=== PATIENT | male | born 2000 | race Hispanic/Latino ===

== ENCOUNTER 2021-11-28 04:06 | Emergency (ER) | payer SELFPAY ==
[2021-11-28] MEDS ORDERED: Acetaminophen 500 MG TAB ONE (05:04)
[2021-11-28] MEDS ORDERED: Ketorolac Tromethamine 30 MG/ML VIAL ONE (05:04)
== END 2021-11-28 05:00 | disposition home or self-care (01) ==
LOC: CSHERS 04:06
DX: M54.50 Low back pain, unspecified (principal)
CPT/HCPCS: 96372; 99283; J1885

== ENCOUNTER 2021-11-29 01:22 | Inpatient (IN) | payer SELFPAY ==
[2021-11-29] MEDS ORDERED: Morphine 4 MG/ML VIAL ONE (02:51)
[2021-11-29 03:10] LABS: SARS-CoV-2 NAA Rapid Test Not Detected (NotDetected)
[2021-11-29 03:44] VITALS: BMI 39.4
[2021-11-29] MEDS ORDERED: Morphine 4 MG/ML VIAL SLOW IVP PRN ×2 (03:59→13:30)
[2021-11-29] MEDS ORDERED: Ondansetron PF 4 MG/2 ML Vial IVP PRN (04:00)
[2021-11-29] MEDS ORDERED: Ondansetron ODT 4 MG TAB SL PRN (04:00)
[2021-11-29] MEDS: Sodium Chloride 0.9% 1,000 ML IV SCH ×2 (05:40→19:37)
[2021-11-29] MEDS ORDERED: Ondansetron PF 4 MG/2 ML Vial ONE ×2 (08:43→12:01)
[2021-11-29] MEDS ORDERED: cefOXitin 2 GM in Sodium Chloride 0.9% 100 ML IVPB SCH (11:15)
[2021-11-29] MEDS ORDERED: EPINEPHrine 1 MG/ML AMP ONE (11:43)
[2021-11-29] MEDS ORDERED: Bupivacaine 0.25% HCL 30 ML VIAL ONE (11:43)
[2021-11-29] MEDS ORDERED: ceFOXitin 1 GM VIAL ONE (11:57)
[2021-11-29] MEDS ORDERED: Rocuronium Bromide 10 MG/ML (10ML VIAL) ONE (12:01)
[2021-11-29] MEDS ORDERED: Lidocaine 2% PF 5 ML VIAL ONE (12:01)
[2021-11-29] MEDS ORDERED: PROPOFOL 20 ML ONE (12:01)
[2021-11-29] MEDS ORDERED: Dexamethasone 20 MG/5 ML VIAL ONE (12:01)
[2021-11-29] MEDS ORDERED: Succinylcholine 200 MG/10 ml SYRINGE FS ONE (12:01)
[2021-11-29] MEDS ORDERED: Ketorolac Tromethamine 30 MG/ML VIAL ONE (12:01)
[2021-11-29] MEDS ORDERED: Fentanyl 100 MCG/2 ML VIAL ONE ×2 (12:01→13:49)
[2021-11-29] MEDS ORDERED: Glycopyrrolate 0.2 MG/ML 5 ML SYRINGE ONE (12:01)
[2021-11-29] MEDS ORDERED: Lidocaine 1% PF 5 ML VIAL ONE (12:02)
[2021-11-29] MEDS ORDERED: Midazolam HCl 2 mg/2 ml Vial ONE (12:03)
[2021-11-29] MEDS ORDERED: HYDROmorphone 0.5 MG/0.5 ML SYRINGE ONE ×2 (12:08)
[2021-11-29] MEDS ORDERED: Dextrose 50% Abboject 50 ML SYRINGE SLOW IVP PRN (13:30)
[2021-11-29] MEDS ORDERED: Dextrose 5% in Water 1,000 ML IV PRN (13:30)
[2021-11-29] MEDS: D5 1/2 NS w/20 mEq KCL 1,000 ML IV SCH ×2 (13:30→22:17)
[2021-11-29] MEDS ORDERED: hydrALAZINE 20 MG/ML VIAL SLOW IVP PRN (13:30)
[2021-11-29] MEDS ORDERED: Calcium Carbonate 500 MG ChewTAB PO PRN (13:30)
[2021-11-29] MEDS ORDERED: Mag-Al 1200 mg/1200 mg/30 ML UDCUP PO PRN (13:30)
[2021-11-29] MEDS ORDERED: HYDROcodone/Acetaminophen 10/325 mg Tablet PO PRN ×2 (13:30)
[2021-11-29] MEDS ORDERED: Promethazine HCl 25 MG/ML VIAL IM PRN (13:30)
[2021-11-29] MEDS: Ondansetron PF 4 MG/2 ML Vial IVP PRN ×2 (14:42→22:17)
[2021-11-29] MEDS: Morphine 2 MG/ML VIAL SLOW IVP PRN (19:34)
[2021-11-29] MEDS: Piperacillin/Tazobactam 3.375 GM in Sodium Chloride 0.9% 100 ML IVPB SCH (20:46)
[2021-11-29] MEDS: Famotidine/PF 20 mg/2ml Vial SLOW IVP SCH (20:47)
[2021-11-29] MEDS: Famotidine 20 MG TAB PO SCH (21:00)
[2021-11-30] MEDS: Morphine 2 MG/ML VIAL SLOW IVP PRN (02:10)
[2021-11-30] MEDS: Piperacillin/Tazobactam 3.375 GM in Sodium Chloride 0.9% 100 ML IVPB SCH ×2 (03:41→12:31)
[2021-11-30 04:55] LABS: #Monocytes 1.5 10x3/uL (0.0-1.1); #Neutrophils 11.3 10x3/uL (1.5-8.4); %Basophils 0.1 % (0.0-2.0); %Lymphocytes 7.9 % (18.0-47.0); %Monocytes 10.4 % (0.0-10.0); %Neutrophils 81.3 % (40.0-75.0); Hemoglobin 13.8 g/dL (13.5-17.5); Mean Corpuscular HGB CONC 34.3 g/dL (32.0-36.0); Mean Corpuscular Hemoglobin 27.9 pg (27.0-33.0); Mean Corpuscular Volume 81.4 fl (81.2-95.1); Mean Platelet Volume 11.7 fl (7.4-10.4); Platelet Count 285 10x3/uL (150-450); RBC Distribution Width 13.7 % (11.5-14.5); Red Blood Cell (RBC) Count 4.94 10x6/uL (4.32-5.72); White Blood Cell (WBC) Count 13.9 10x3/uL (3.5-10.5)
[2021-11-30 05:04] LABS: ALT (SGPT) 80 U/L (8-55); AST (SGOT) 68 U/L (5-34); Albumin 3.8 g/dL (3.5-5.0); Alkaline Phosphatase 60 U/L (40-110); Anion Gap 16 mmol/L (10-20); BUN (Urea Nitrogen) 7 mg/dL (8.9-20.6); Bilirubin, Total 0.8 mg/dL (0.2-1.2); Calc. Creatinine Clearance 258 mL/min (70-130); Calcium 8.9 mg/dL (7.8-10.44); Carbon Dioxide 23 mmol/L (22-29); Chloride 105 mmol/L (98-107); Glucose 121 mg/dL (70-105); Lipase 10 U/L (8-78); Potassium 3.9 mmol/L (3.5-5.1); Protein, Total 6.8 g/dL (6.0-8.3); Sodium 140 mmol/L (136-145)
[2021-11-30] MEDS: D5 1/2 NS w/20 mEq KCL 1,000 ML IV SCH ×2 (06:37→16:14)
[2021-11-30] MEDS ORDERED: Enoxaparin Sodium 40 MG/0.4 ML SYRINGE SC SCH (09:00)
[2021-11-30] MEDS: Famotidine/PF 20 mg/2ml Vial SLOW IVP SCH (09:13)
[2021-11-30] MEDS: Famotidine 20 MG TAB PO SCH (09:13)
[2021-11-30 17:25] VITALS: BP 123/77; TEMP 97.4
== END 2021-11-30 17:52 | disposition home or self-care (01) | DRG 419 ==
LOC: CSHERS 01:22 → INTOOBSV 03:15 → CSHTELE 03:15 → OBSVTOIN 13:32
PROVIDERS: ADMIT Surgery; ATTEND Surgery
PROC: 0FT44ZZ Resection of Gallbladder, Percutaneous Endoscopic Approach (ICD-10-PCS; principal; 2021-11-29)
DX: K80.00 Calculus of gallbladder with acute cholecystitis without obstruction (principal); E66.01 Morbid (severe) obesity due to excess calories; Z20.822 Contact with and (suspected) exposure to COVID-19; Z98.890 Other specified postprocedural states; Z68.39 Body mass index [BMI] 39.0-39.9, adult
CPT/HCPCS: 76705; 80053; 83690; 85025; 87070; 87205; 88304; 96374; 96375; 96376; C1713; G0378; J0171; J0694; J1100; J1170; J1650; J1885; J2001; J2250; J2270; J2405; J2543; J2704; J3010; J3480; J3490; J7050; S0020; S0028; U0002

== ENCOUNTER 2022-08-29 18:43 | Emergency (ER) | payer SELFPAY ==
[2022-08-29] MEDS ORDERED: Ondansetron PF 4 MG/2 ML Vial ONE (19:43)
[2022-08-29] MEDS ORDERED: Ketorolac Tromethamine 30 MG/ML VIAL ONE (19:43)
[2022-08-29 20:04] LABS: #Monocytes 0.7 10x3/uL (0.0-1.1); %Basophils 0.2 % (0.0-2.0); %Eosinophils 0.1 % (0.0-6.0); %Lymphocytes 3.5 % (18.0-47.0); %Neutrophils 90.8 % (40.0-75.0); Hemoglobin 16.1 g/dL (13.5-17.5); Mean Corpuscular HGB CONC 33.6 g/dL (32.0-36.0); Mean Corpuscular Hemoglobin 27.6 pg (27.0-33.0); Mean Corpuscular Volume 82.2 fl (81.2-95.1); Mean Platelet Volume 12.2 fl (7.4-10.4); Platelet Count 285 10x3/uL (150-450); RBC Distribution Width 13.9 % (11.5-14.5); Red Blood Cell (RBC) Count 5.83 10x6/uL (4.32-5.72); White Blood Cell (WBC) Count 13.2 10x3/uL (3.5-10.5)
[2022-08-29 20:10] LABS: Bilirubin Neg (Negative); Blood, Urine 25 (Negative); Clarity Clear (Clear); Glucose, Urine (Dipstick) Normal (Negative); Ketone, Urine 5 mg/dL (Negative); Leukocyte Negative (Negative); Nitrite Negative (Negative); Protein, Urine (Dipstick) 30 mg/dl (Neg-Trace); Urobilinogen Normal mg/dL (Less than 2)
[2022-08-29 20:22] LABS: ALT (SGPT) 116 U/L (8-55); AST (SGOT) 43 U/L (5-34); Albumin 4.6 g/dL (3.5-5.0); Alkaline Phosphatase 64 U/L (40-110); Anion Gap 14 mmol/L (10-20); BUN (Urea Nitrogen) 18 mg/dL (8.9-20.6); Calc. Creatinine Clearance 0 mL/min (70-130); Calcium 9.1 mg/dL (7.8-10.44); Carbon Dioxide 24 mmol/L (22-29); Chloride 104 mmol/L (98-107); Estimated GFR 130; Globulin 3.3 g/dL (2.4-3.5); Glucose 100 mg/dL (70-105); Lipase 18 U/L (8-78); Potassium 3.7 mmol/L (3.5-5.1); Protein, Total 7.9 g/dL (6.0-8.3); Sodium 138 mmol/L (136-145)
[2022-08-29 20:23] LABS: SARS-CoV-2 NAA Rapid Test Not Detected (NotDetected)
[2022-08-29 20:49] LABS: Bacteria/HPF 2+ HPF (None Seen); Mucous/LPF 4+ LPF (<2+); RBC/HPF 0-3 HPF (0-3); Squamous Epithelial 0-3 HPF (0-3)
== END 2022-08-29 23:14 | disposition home or self-care (01) ==
LOC: CSHERS 18:43
DX: R11.2 Nausea with vomiting, unspecified (principal); R19.7 Diarrhea, unspecified; E86.0 Dehydration; D72.829 Elevated white blood cell count, unspecified; Z20.822 Contact with and (suspected) exposure to COVID-19
CPT/HCPCS: 74177; 80053; 81003; 81015; 83690; 85025; 96361; 96374; 96375; J1885; J2405

== ENCOUNTER 2022-11-21 13:12 | Emergency (ER) | payer SELFPAY ==
[2022-11-21 14:11] LABS: Bilirubin Neg (Negative); Blood, Urine 10 (Negative); Clarity Clear (Clear); Glucose, Urine (Dipstick) Normal (Negative); Ketone, Urine Negative (Negative); Leukocyte Negative (Negative); Nitrite Negative (Negative); Protein, Urine (Dipstick) 15 mg/dl (Neg-Trace); Urobilinogen Normal mg/dL (Less than 2)
[2022-11-21 14:33] LABS: RBC/HPF 0-3 HPF (0-3); Squamous Epithelial 0-3 HPF (0-3)
[2022-11-21 14:34] LABS: Bacteria/HPF None Seen HPF (None Seen); WBC/HPF None Seen HPF (0-3)
[2022-11-21] MEDS ORDERED: Dexamethasone 10 MG/ML VIAL ONE (15:40)
== END 2022-11-21 15:44 | disposition home or self-care (01) ==
LOC: CSHERS 13:12
DX: L50.0 Allergic urticaria (principal)
CPT/HCPCS: 81003; 81015; 99283; J1100